=== PATIENT | male | born 1970 | race Caucasian/White ===

== ENCOUNTER 2019-02-18 20:12 | Emergency (ER) | payer SELFPAY ==
[~2019-02-18] VITALS: Ht 185.4 cm; Wt 72.6 kg
[2019-02-18] MEDS ORDERED: levETIRAcetam 500 MG in D5W 110 ML IV ONE (20:30)
--- NOTE | 2019-02-18 20:49 | NUR ---
ED Nurse Note: Recieved pt BIBA from [facility] s/p seizure activity x 2, pt arrived awake, alert and oriented x 4, states takes dilantin and has not had for 1 month due to loss of insurance, pt denies injury, cp, sob, or any other complaitns, pt immediately placed on cardiac monitoring, side rails padded for sz precautions, no sz activity noted, will resume care as ordered and closely monitor.
[2019-02-18 21:16] LABS: ANION GAP 5 mmol/L (5-15); BLOOD UREA NITROGEN 16 mg/dL (7-18); CALCIUM 9.1 MG/DL (8.5-10.1); CARBON DIOXIDE 32 MMOL/L (21-32); CHLORIDE 107 MMOL/L (98-107); CREATININE 1.2 MG/DL (0.55-1.30); SODIUM 144 MMOL/L (136-145)
[2019-02-18 21:28] LABS: ALANINE AMINOTRANSFERASE 38 U/L (12-78); ALBUMIN 3.9 G/DL (3.4-5.0); ALBUMIN/GLOBULIN RATIO 1.2 (1.0-2.7); ALKALINE PHOSPHATASE 87 U/L (46-116); ASPARTATE AMINO TRANSFERASE 22 U/L (15-37); BILIRUBIN,TOTAL 0.4 MG/DL (0.2-1.0); CREATINE KINASE 210 U/L (26-308)
[2019-02-18 21:34] LABS: BASOPHILS % (AUTO) 0.6 % (0.0-2.0); EOSINOPHILS % (AUTO) 0.8 % (0.0-3.0); HEMATOCRIT 40.5 % (42.0-52.0); HEMOGLOBIN 12.9 G/DL (14.2-18.0); LYMPHOCYTES % (AUTO) 19.7 % (20.0-45.0); MEAN CORPUSCULAR VOLUME 86 FL (80-99); MONOCYTES % (AUTO) 7.7 % (1.0-10.0); NEUTROPHILS % (AUTO) 71.2 % (45.0-75.0); PLATELET COUNT 352 K/UL (150-450); RED BLOOD COUNT 4.69 M/UL (4.70-6.10); RED CELL DISTRIBUTION WIDTH 11.9 % (11.6-14.8); WHITE BLOOD COUNT 7.8 K/UL (4.8-10.8)
--- NOTE | 2019-02-18 21:36 | Diagnostic Imaging Report ---
CT HEAD Without Contrast: Motion degraded study. Negative for mass, mass-effect or intracranial hemorrhage.
[2019-02-18 22:00] VITALS: BP 141/79
[2019-02-18] MEDS ORDERED: KEPPRA500 M4 ORAL (22:16)
--- NOTE | 2019-02-18 22:16 | Emergency Room Report ---
History of Present Illness General Chief Complaint: Seizure Source: Patient Present Illness HPI This patient is a homeless male. He states that he has not been taking his Dilantin because his insurance is out. He is working with a protective services social worker to get section 8. He states that he believes he had a couple seizures today. He felt an aura. He states he is not quite sure but was concerned that he did have them. He has no pain. He has no other complaints. Allergies: Coded Allergies: PENICILLINS (Verified Allergy, Unknown, 02/18/19) Patient History Past Medical History: see triage record, seizures Social History: Reports: smoking; Denies: alcohol use, drug use Reviewed Nursing Documentation: PMH: Agreed; PSxH: Agreed Nursing Documentation-PMH Hx Seizures: Yes Review of Systems All Other Systems: negative except mentioned in HPI Physical Exam Vital Signs Date Time Temp Pulse Resp B/P (MAP) Pulse Ox O2 Delivery O2 Flow Rate FiO2 02/18/19 20:08 97.9 62 16 147/88 (107) 98 Room Air Sp02 EP Interpretation: reviewed, normal General Appearance: no apparent distress, alert, GCS 15, non-toxic Head: normocephalic, atraumatic Eyes: bilateral eye normal inspection, bilateral eye PERRL ENT: hearing grossly normal, normal pharynx, no angioedema, normal voice Neck: full range of motion, supple/symm/no masses Respiratory: chest non-tender, lungs clear, normal breath sounds, no respiratory distress, no retraction, no accessory muscle use, speaking full sentences Cardiovascular #1: regular rate, rhythm, no edema Gastrointestinal: normal bowel sounds, non tender, soft, non-distended, no guarding, no rebound Rectal: deferred Musculoskeletal: back normal, gait/station normal, normal range of motion, non- tender Neurologic: alert, oriented x3, responsive, motor strength/tone normal, sensory intact, speech normal Psychiatric: judgement/insight normal, memory normal, mood/affect normal, no suicidal/homicidal ideation Skin: normal color Medical Decision Making Diagnostic Impression: Primary Impression: Seizure disorder ER Course I suspect the seizures that the patient is presenting with is non-emergent in etiology. The patient has a history of seizures in the past and has returned to baseline with normal neurologic status. The patient is not immunocompromised with no history of known structural brain disease. The patient does not have persistent altered mental status, fever or new focal neurologic deficit. Laboratory workup was noncontributory. I doubt meningitis so a lumbar puncture was not performed. The patient was counseled that, though unlikely, the possibility of an emergent cause of seizure may still be present and that the patient should return immediately if symptoms persist or worsen. I believe the patient is stable for discharge to followup with the primary care provider for further workup. Laboratory Tests Test 02/18/19 20:35 White Blood Count 7.8 K/UL (4.8-10.8) Red Blood Count 4.69 M/UL (4.70-6.10) L Hemoglobin 12.9 G/DL (14.2-18.0) L Hematocrit 40.5 % (42.0-52.0) L Mean Corpuscular Volume 86 FL (80-99) Mean Corpuscular Hemoglobin 27.4 PG (27.0-31.0) Mean Corpuscular Hemoglobin Concent 31.7 G/DL (32.0-36.0) L Red Cell Distribution Width 11.9 % (11.6-14.8) Platelet Count 352 K/UL (150-450) Mean Platelet Volume 5.1 FL (6.5-10.1) L Neutrophils (%) (Auto) 71.2 % (45.0-75.0) Lymphocytes (%) (Auto) 19.7 % (20.0-45.0) L Monocytes (%) (Auto) 7.7 % (1.0-10.0) Eosinophils (%) (Auto) 0.8 % (0.0-3.0) Basophils (%) (Auto) 0.6 % (0.0-2.0) Sodium Level 144 MMOL/L (136-145) Potassium Level 4.0 MMOL/L (3.5-5.1) Chloride Level 107 MMOL/L (98-107) Carbon Dioxide Level 32 MMOL/L (21-32) Anion Gap 5 mmol/L (5-15) Blood Urea Nitrogen 16 mg/dL (7-18) Creatinine 1.2 MG/DL (0.55-1.30) Estimate Glomerular Filtration Rate > 60 mL/min (>60) Glucose Level 102 MG/DL (74-106) Calcium Level 9.1 MG/DL (8.5-10.1) Total Bilirubin 0.4 MG/DL (0.2-1.0) Aspartate Amino Transferase (AST) 22 U/L (15-37) Alanine Aminotransferase (ALT) 38 U/L (12-78) Alkaline Phosphatase 87 U/L (46-116) Total Creatine Kinase 210 U/L (26-308) Troponin I 0.000 ng/mL (0.000-0.056) Total Protein 7.1 G/DL (6.4-8.2) Albumin 3.9 G/DL (3.4-5.0) Globulin 3.2 g/dL Albumin/Globulin Ratio 1.2 (1.0-2.7) Phenytoin (Dilantin) Level 0.9 ug/mL (10-20) L Serum Alcohol < 3 mg/dL EKG Diagnostic Results Rate: normal Rhythm: NSR ST Segments: no acute changes Rhythm Strip Diag. Results EP Interpretation: yes Rate: 60's Rhythm: NSR, no PVC's, no ectopy CT/MRI/US Diagnostic Results CT/MRI/US Diagnostic Results : Imaging Test Ordered: CT head Impression No acute findings. Specifically no intracranial bleed, mass effect or edema. See official report. Last Vital Signs Date Time Temp Pulse Resp B/P (MAP) Pulse Ox O2 Delivery O2 Flow Rate FiO2 02/18/19 20:30 62 16 Room Air 02/18/19 20:08 97.9 147/88 (107) 98 Status: improved Disposition: HOME, SELF-CARE Condition: Improved Patient Instructions: Seizure, Adult Pepper Urban DO Feb 18, 2019 22:16
--- NOTE | 2019-02-18 22:45 | NUR ---
ED Nurse Note: Pt completed iv meds, tolerated well, no sz activity noted, denies pain, iv site patent, pt given sandwich and juice, tolerated well, v/s stable, will continue to closely monitor and prepare for discharge, pt is homeless and states he stays with friends at this time, will follow protocol and prepare for discharge.
[2019-02-18 23:00] VITALS: BP 141/79
--- NOTE | 2019-02-18 23:00 | NUR ---
ED Nurse Note: Pt being d/c. states has somewhere to go, pt given sandwich and juice, also gave referrals for when he needs med refill and f/u, pt is riding bicycle, has all belongings. signed all pertinent paperworks, nad noted during d/c. iv line and armband removed without complications.
--- NOTE | 2019-03-03 16:03 | Cardiology Report ---
APPROVED REPORT EKG Measurement Heart [id number] Normal sinus rhythm Normal ECG
== END 2019-02-18 23:00 | disposition home or self-care (01) ==
LOC: EDBD 20:12 → EMR 22:00
DX: G40.909 Epilepsy, unspecified, not intractable, without status epilepticus (principal); Z88.0 Allergy status to penicillin; F17.200 Nicotine dependence, unspecified, uncomplicated; Z59.0 Homelessness
CPT/HCPCS: 36415; 70450; 80053; 80185; 82550; 82962; 84484; 85025; 93005; 96361; 96374; 99284; G0480; J1953; 80329

== ENCOUNTER 2019-05-14 02:11 | Emergency (ER) | payer SELFPAY ==
[~2019-05-14] VITALS: Ht 185.4 cm; Wt 77.1 kg
[~2019-05-14 02:11] MED LIST: KEPPRA500 M4 ORAL
[2019-05-14 02:26] VITALS: BP 134/78
[2019-05-14] MEDS ORDERED: IBUPROFEN600 MG ORAL (02:26)
--- NOTE | 2019-05-14 02:27 | Emergency Room Report ---
History of Present Illness General Chief Complaint: Abdominal Pain Source: Patient, EMS Present Illness HPI 48-year-old male with no past medical history except for seizure. He presents with swelling to his right groin area. He says been on and off for few months but worse tonight. Acute onset about an hour ago when he got up to urinate. He said it ray and painful. No nausea no vomiting. No fever chills but no diarrhea. Nothing made it better. It made it worse. Pain is 9 out of 10. Burning sharp in nature. No radiation. Allergies: Coded Allergies: PENICILLINS (Verified Allergy, Unknown, 02/18/19) Patient History Past Medical History: see triage record, old chart reviewed, seizures Past Surgical History: none Pertinent Family History: none Social History: Reports: smoking Immunizations: other Reviewed Nursing Documentation: PMH: Agreed; PSxH: Agreed Nursing Documentation-PMH Hx Asthma: Yes Hx Seizures: Yes Review of Systems Eye: Denies: eye pain, blurred vision ENT: Denies: ear pain, nose congestion, throat swelling Respiratory: Denies: cough, shortness of breath Cardiovascular: Denies: chest pain, palpitations Gastrointestinal: Denies: abdominal pain, diarrhea, nausea, vomiting Genitourinary: Reports: pain Musculoskeletal: Denies: back pain, joint pain Skin: Denies: rash Neurological: Denies: headache, numbness Endocrine: Denies: increased thirst, increased urine Hematologic/Lymphatic: Denies: easy bruising All Other Systems: negative except mentioned in HPI Physical Exam Vital Signs Date Time Temp Pulse Resp B/P (MAP) Pulse Ox O2 Delivery O2 Flow Rate FiO2 05/14/19 02:13 97.5 110 20 134/78 (96) 99 Room Air Vitals with tachycardia Sp02 EP Interpretation: reviewed, normal General Appearance: well appearing, no apparent distress, alert Head: normocephalic, atraumatic Eyes: bilateral eye PERRL, bilateral eye EOMI ENT: hearing grossly normal, normal pharynx Neck: full range of motion, supple, no meningismus Respiratory: chest non-tender, lungs clear, normal breath sounds Cardiovascular #1: regular rate, rhythm, no murmur Gastrointestinal: normal bowel sounds, non tender, no mass, no organomegaly, no bruit, non-distended Genitourinary: penis normal, other - Right groin: He has a tender right inguinal hernia. Easily reducible. No incarceration or obstruction. No strangulation. Musculoskeletal: back normal, normal range of motion, gait/station normal Psychiatric: mood/affect normal Medical Decision Making Diagnostic Impression: Primary Impression: Inguinal hernia of right side without obstruction or gangrene Additional Impressions: Methamphetamine abuse Proteinuria Qualified Codes: R80.9 - Proteinuria, unspecified ER Course Patient with a right inguinal hernia. It may have gotten bigger tonight. This may be causing his pain. But there is no obstruction, incarceration, or strangulation. Will discharge home. Last Vital Signs Date Time Temp Pulse Resp B/P (MAP) Pulse Ox O2 Delivery O2 Flow Rate FiO2 05/14/19 02:13 97.5 110 20 134/78 (96) 99 Room Air Status: improved Disposition: HOME, SELF-CARE Condition: Stable Scripts Ibuprofen* (MOTRIN*) 600 Mg Tablet 600 MG ORAL THREE TIMES A DAY, #30 TAB 0 Refills Prov: Vinnie Betancourt MD 05/14/19 Additional Instructions: No heavy lifting. Follow-up with your doctor in 7 days. Pain you may need referral to see a surgeon. Return if worse. Vinnie Betancourt MD May 14, 2019 02:27
[2019-05-14] MEDS ORDERED: Ketorolac 60mg Inj IM ONE (02:30)
[2019-05-14 02:50] VITALS: BP 134/78
[2019-05-14 03:07] LABS: APPEARANCE,URINE CLEAR; BILIRUBIN, URINE 1+ (NEGATIVE); GLUCOSE, URINE (UA) NEGATIVE (NEGATIVE); KETONES,URINE 1+ (NEGATIVE); LEUKOCYTE ESTERASE ,URINE NEGATIVE (NEGATIVE); NITRITE,URINE NEGATIVE (NEGATIVE); PH,URINE 5 (4.5-8.0); PROTEIN,URINE 2+ (NEGATIVE); UROBILINOGEN,URINE 4 MG/DL (0.0-1.0)
[2019-05-14 03:09] LABS: COLOR,URINE YELLOW
== END 2019-05-14 02:50 | disposition home or self-care (01) ==
LOC: EDBD 02:11 → EMR 02:30
DX: K40.90 Unilateral inguinal hernia, without obstruction or gangrene, not specified as recurrent (principal); F15.10 Other stimulant abuse, uncomplicated; R80.9 Proteinuria, unspecified; J45.909 Unspecified asthma, uncomplicated; G40.909 Epilepsy, unspecified, not intractable, without status epilepticus; F17.200 Nicotine dependence, unspecified, uncomplicated; Z88.0 Allergy status to penicillin
CPT/HCPCS: 80307; 81003; 96372; 99284